=== PATIENT | female | born 2000 | race Caucasian/White ===

== ENCOUNTER 2019-07-16 14:47 | Emergency (ER) | payer SELFPAY ==
--- OUTSIDE RECORDS SUMMARY | 2019-07-16 14:49 | XMS REPORT ---
:2000 Author Organization eClinicalWorks Care Team Providers Name Role Phone Jeff Ro Provider Role Unavailable Allergies, Adverse Reactions, Alerts Substance Reaction Event Type N.K.D.A. Info Not Available Non Drug Allergy Problems Problem Type Condition Code Onset Dates Condition Status Assessment Pelvic pain R10.2 Active Problem Acute vaginitis N76.0 Active Problem Routine screening for STI (sexually Z11.3 Active transmitted infection) Problem Well woman exam with routine Z01.419 Active gynecological exam Assessment Acute vaginitis N76.0 Active Assessment Routine screening for STI (sexually Z11.3 Active transmitted infection) Assessment Well woman exam with routine Z01.419 Active gynecological exam Medications No Known Medications Results Name Result Date Reference Range Unit Abnormality Flag URINALYSIS AUTO W/O SCOPE (26221) ----NIT NEG 20181114 ----URO 0.2 20181114 ----PROTEIN NEG 20181114 ----pH 7.5 20181114 ----BLO 3+ 20181114 ----GLUCOSE NEG 20181114 ----EVANS NEG 20181114 ----BILIRUBIN NEG 20181114 ----KETONES NEG 20181114 ----SPECIFIC GRAVITY 1.015 20181114 Summary Purpose eClinicalWorks Submission
--- NOTE | 2019-07-16 15:38 | RAD REPORT ---
EXAM DESCRIPTION: RAD - Chest Single View - 07/16/2019 3:21 pm CLINICAL HISTORY: Cough, recent antibiotic treatment with no improvement COMPARISON: June 2016 TECHNIQUE: AP portable chest image was obtained 1515 hours . FINDINGS: Lungs are clear. Heart and vasculature are normal. No measurable pleural effusion and no p neumothorax. No acute bony abnormality seen. No acute aortic findings suspected. IMPRESSION: No acute cardiopulmonary process. No significant change from prior study.
[2019-07-16 15:49] LABS: Hematocrit 39.7 % (36.0-45.0); RBC Red Blood Cell Count 4.57 M/uL (3.86-4.86)
[2019-07-16 15:50] LABS: Basophils % 0.5 % (0-1.3); Lymphocytes % 27.4 % (15.3-44.8); MPV 8.9 fL (7.6-11.3)
[2019-07-16] MEDS ORDERED: DIAZEPAM 10 MG/2 ML INJ SYRINGE ONE (15:52)
[2019-07-16] MEDS ORDERED: KETOROLAC 30 MG/ML INJ ONE (15:53)
[2019-07-16] MEDS ORDERED: NA CHLORIDE 0.9% 0 ML ONE (15:53)
[2019-07-16 16:13] LABS: Protime INR 1.04
[2019-07-16 16:14] LABS: Urine Blood NEGATIVE (NEG); Urine Glucose NEGATIVE (NEG); Urine Protein NEGATIVE (NEG)
[2019-07-16 16:16] LABS: ALT/SGPT 17 U/L (12-78); AST/SGOT 7 U/L (15-37); Albumin 4.3 g/dL (3.4-5.0); Alkaline Phosphatase 63 U/L (45-117); BUN Blood Urea Nitrogen 8 mg/dL (7-18); Bicarbonate 25 mmol/L (21-32); Bilirubin Direct 0.2 mg/dL (0-0.2); Bilirubin Total 0.5 mg/dL (0.2-1.0); Glucose Level 94 mg/dL (74-106); Magnesium 2.2 mg/dL (1.8-2.4); NT PRO-BNP 31 pg/mL (<125); Potassium 3.4 mmol/L (3.5-5.1); Protein, Total 7.6 g/dL (6.4-8.2); Sodium Level 142 mmol/L (136-145); Troponin (Emerg Dept Use Only) < 0.02 ng/mL (0.0-0.045)
--- NOTE | 2019-07-16 16:32 | ER ---
Nurse's Notes [facility] Name: Bhaskar Salinas Age: 19 yrs Sex: Female : 2000 Arrival Date: 07/16/2019 Time: 14:52 Bed 13 Private MD: Diagnosis: Bronchitis, not specified as acute or chronic;Tachycardia, unspecified Presentation: 07/16 15:00 Presenting complaint: Patient states: 4 weeks I was dx URI and given PCN, completed it, la1 still have felt bad, Pt states HR runs in the 130s to 140s for the last few years. Transition of care: patient was not received from another setting of care. Onset of symptoms was July 16, 2019. Risk Assessment: Do you want to hurt yourself or someone else? Patient reports no desire to harm self or others. Initial Sepsis Screen: Does the patient meet any 2 criteria? No. Patient's initial sepsis screen is negative. Does the patient have a suspected source of infection? No. Patient's initial sepsis screen is negative. Care prior to arrival: None. 15:00 Method Of Arrival: Ambulatory la1 15:00 Acuity: ANGELO 3 la1 Triage Assessment: 15:07 Respiratory: Onset: The symptoms/episode began/occurred pt. reports that the rb1 palpitations have been going on for months., the patient has mild shortness of breath. 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 - Social history:: Smoking status: Patient uses tobacco products, denies chronic smoking, but will smoke occasionally. - Ebola Screening: : No symptoms or risks identified at this time. Screenin:07 Abuse screen: Denies threats or abuse. Nutritional screening: No deficits noted. rb1 Tuberculosis screening: No symptoms or risk factors identified. Fall Risk None identified. Assessment: 15:07 General: Appears in no apparent distress. comfortable, Behavior is calm, cooperative, rb1 Denies fever. General: Pt. reports feeling palpitations and SOB. Pain: Complains of pain in chest Pain currently is 2 out of 10 on a pain scale. Neuro: Level of Consciousness is awake, alert, obeys commands, Oriented to person, place, time, situation. Cardiovascular: Reports chest pain, palpitations, shortness of breath, Rhythm is sinus tachycardia. Respiratory: Reports shortness of breath cough that is productive, green sputum Airway is patent Respiratory effort is even, unlabored, Respiratory pattern is regular, symmetrical, Breath sounds are clear bilaterally. GI: Reports diarrhea, since x 3 weeks. : No signs and/or symptoms were reported regarding the genitourinary system. Derm: Skin is pink, warm \T\ dry. 16:00 Reassessment: Patient appears in no apparent distress at this time. Patient and/or rb1 family updated on plan of care and expected duration. Pain level reassessed. Patient is alert, oriented x 3, equal unlabored respirations, skin warm/dry/pink. Patient denies pain at this time. 17:00 Reassessment: Patient appears in no apparent distress at this time. No changes from rb1 previously documented assessment. Vital Signs: 15:02 BP 144 / 90; Pulse 140; Resp 18; Temp 99.4(TE); Pulse Ox 100% on R/A; Weight 58.97 kg; la1 Height 5 ft. 6 in. (167.64 cm); 16:00 BP 138 / 96; Pulse 120; Resp 17; Temp 98.8(TE); Pulse Ox 98% on R/A; Pain 0/10; rb1 17:00 BP 123 / 88; Pulse 99; Resp 16; Temp 98.7(O); Pulse Ox 100% on R/A; Pain 0/10; rb1 15:02 Body Mass Index 20.98 (58.97 kg, 167.64 cm) la1 ED Course: 14:52 Patient arrived in ED. mr 15:02 Humaira Correa FNP-C is PHCP. snw 15:02 Young Marcano MD is Attending Physician. snw 15:02 Triage completed. la1 15:02 Arm band placed on left wrist. la1 15:07 Patient has correct armband on for positive identification. Placed in gown. Bed in low rb1 position. Call light in reach. Side rails up X 1. engine monitor on. Pulse ox on. NIBP on. 15:08 Asha Zuñiga, RN is Primary Nurse. rb1 15:24 Chest Single View XRAY In Process Unspecified. EDMS 15:30 Initial lab(s) drawn, by me, sent to lab. Urine collected: clean catch specimen, clear, kj1 EKG done, by ED staff, reviewed by Humaira VALENTIN Flu and/or RSV swab sent to lab. Inserted saline lock: 22 gauge in right antecubital area, using aseptic technique. 15:45 First set of blood cultures drawn by me, Second set of blood cultures drawn by me. kj1 16:30 Payam Kerr MD is Referral Physician. snw 17:28 No provider procedures requiring assistance completed. IV discontinued, intact, rb1 bleeding controlled, No redness/swelling at site. Pressure dressing applied. Administered Medications: 16:00 Drug: Valium 2 mg Route: IVP; Site: right antecubital; rb1 16:15 Follow up: Response: No adverse reaction rb1 16:00 Drug: TORadol - Ketorolac 15 mg Route: IVP; Site: right antecubital; rb1 16:15 Follow up: Response: No adverse reaction rb1 16:00 Drug: NS 0.9% 1000 ml Route: IV; Rate: 1 bolus; Site: right antecubital; rb1 17:00 Follow up: IV Status: Completed infusion rb1 16:33 Drug: Metoprolol 25 mg Route: PO; rb1 17:00 Follow up: Response: No adverse reaction rb1 17:10 Not Given (provider discretion): NS 0.9% 1000 ml IV at 125 ml/hr continuous rb1 Outcome: 16:31 Discharge ordered by . snw 17:28 Patient left the ED. rb1 17:28 Discharged to home ambulatory, with family. rb1 17:28 Condition: stable 17:28 Discharge instructions given to patient, Instructed on discharge instructions, follow up and referral plans. Demonstrated understanding of instructions, follow-up care, medications, Prescriptions given X 1. Signatures: Dispatcher [employer] EDID Humaira Correa FNP-C FASHION MODEL-Csnw Yaima Houser Leland Becerril RN RN Asha Treadwell, RN RN rb1 Marry Wallace kj1 Corrections: (The following items were deleted from the chart) 16:17 15:07 Respiratory: Reports shortness of breath cough that is productive, green sputum rb1 Airway is patent Respiratory effort is even, unlabored, Respiratory pattern is regular, symmetrical, rb1 16:21 16:20 Initial lab(s) drawn, by me, sent to lab. Urine collected: clean catch specimen, kj1 clear, EKG done, by ED staff, reviewed by Humaira VALENTIN Flu and/or RSV swab sent to lab. kj1 16:20 Inserted saline lock: 22 gauge in right antecubital area, using aseptic kj1 technique. kj1
--- NOTE | 2019-07-16 16:32 | EDPHYS ---
Physician Documentation [facility] Name: Bhaskar Salinas Age: 19 yrs Sex: Female : 2000 Arrival Date: 07/16/2019 Time: 14:52 Bed 13 Private MD: ED Physician Young Marcano HPI: 07/16 15:37 This 19 yrs old Female presents to ER via Ambulatory with complaints of snw Cough, Chest Congestion, Shortness Of Breath. 15:37 The patient or guardian reports airway noise, cough, difficulty breathing. Onset: The snw symptoms/episode began/occurred 3 week(s) ago, and became persistent. Severity of symptoms: At their worst the symptoms were moderate, severe. Associated signs and symptoms: Pertinent positives: congestion. The patient has experienced similar episodes in the past. has seen cardiology for tachycardia multiple times. Pt states her normal resting heart rate is between 130-140. 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 - Social history:: Smoking status: Patient uses tobacco products, denies chronic smoking, but will smoke occasionally. - Ebola Screening: : No symptoms or risks identified at this time. ROS: 15:37 Constitutional: Negative for fever, chills, and weight loss, Eyes: Negative for injury, snw pain, redness, and discharge, ENT: Negative for injury, pain, and discharge, Neck: Negative for injury, pain, and swelling, Cardiovascular: Negative for chest pain, palpitations, and edema, Abdomen/GI: Negative for abdominal pain, nausea, vomiting, diarrhea, and constipation, Back: Negative for injury and pain, : Negative for injury, bleeding, discharge, and swelling, MS/Extremity: Negative for injury and deformity, Skin: Negative for injury, rash, and discoloration, Neuro: Negative for headache, weakness, numbness, tingling, and seizure. 15:37 Respiratory: Positive for cough, shortness of breath. Exam: 15:36 Head/Face: Normocephalic, atraumatic. Eyes: Pupils equal round and reactive to light, snw extra-ocular motions intact. Lids and lashes normal. Conjunctiva and sclera are non-icteric and not injected. Cornea within normal limits. Periorbital areas with no swelling, redness, or edema. ENT: Nares patent. No nasal discharge, no septal abnormalities noted. Tympanic membranes are normal and external auditory canals are clear. Oropharynx with no redness, swelling, or masses, exudates, or evidence of obstruction, uvula midline. Mucous membranes moist. Neck: Trachea midline, no thyromegaly or masses palpated, and no cervical lymphadenopathy. Supple, full range of motion without nuchal rigidity, or vertebral point tenderness. No Meningismus. Chest/axilla: Normal chest wall appearance and motion. Nontender with no deformity. No lesions are appreciated. 15:36 Abdomen/GI: Soft, non-tender, with normal bowel sounds. No distension or tympany. No guarding or rebound. No evidence of tenderness throughout. Back: No spinal tenderness. No costovertebral tenderness. Full range of motion. Skin: Warm, dry with normal turgor. Normal color with no rashes, no lesions, and no evidence of cellulitis. MS/ Extremity: Pulses equal, no cyanosis. Neurovascular intact. Full, normal range of motion. Neuro: Awake and alert, GCS 15, oriented to person, place, time, and situation. Cranial nerves II-XII grossly intact. Motor strength 5/5 in all extremities. Sensory grossly intact. Cerebellar exam normal. Normal gait. 15:36 Constitutional: The patient appears awake, anxious, restless. 15:36 Cardiovascular: Rate: tachycardic, Rhythm: regular, Pulses: no pulse deficits are appreciated, Heart sounds: normal. 15:36 Respiratory: the patient does not display signs of respiratory distress, Respirations: normal, Breath sounds: are clear throughout, harsh cough. 15:36 Psych: Behavior/mood is anxious, Affect is animated, Oriented to person, place, time. Vital Signs: 15:02 BP 144 / 90; Pulse 140; Resp 18; Temp 99.4(TE); Pulse Ox 100% on R/A; Weight 58.97 kg; la1 Height 5 ft. 6 in. (167.64 cm); 16:00 BP 138 / 96; Pulse 120; Resp 17; Temp 98.8(TE); Pulse Ox 98% on R/A; Pain 0/10; rb1 17:00 BP 123 / 88; Pulse 99; Resp 16; Temp 98.7(O); Pulse Ox 100% on R/A; Pain 0/10; rb1 15:02 Body Mass Index 20.98 (58.97 kg, 167.64 cm) la1 MDM: 15:14 Patient medically screened. snw 16:35 Data reviewed: vital signs, nurses notes. Data interpreted: Pulse oximetry: on room air snw is 98 %. Interpretation: normal. Counseling: I had a detailed discussion with the patient and/or guardian regarding: the historical points, exam findings, and any diagnostic results supporting the discharge/admit diagnosis, the presence of at least one elevated blood pressure reading (>120/80) during this emergency department visit, lab results, radiology results, the need for outpatient follow up, to return to the emergency department if symptoms worsen or persist or if there are any questions or concerns that arise at home. Special discussion: I have referred the patient to see his PCP for further evaluation of high blood pressure. Based on the history and exam findings, there is no indication for further emergent testing or inpatient evaluation. I discussed with the patient/guardian the need to see the advanced quality engineer for further evaluation of the symptoms. I discussed with the patient/guardian the need to see the primary care provider for further evaluation of the symptoms. 07/16 15:06 Order name: TSH; Complete Time: 16:29 snw 07/16 15:06 Order name: Basic Metabolic Panel; Complete Time: 16:29 snw 07/16 15:06 Order name: CBC with Diff; Complete Time: 16:29 snw 07/16 15:06 Order name: LFT's; Complete Time: 16:29 snw 07/16 15:06 Order name: Magnesium; Complete Time: 16:29 snw 07/16 15:06 Order name: NT PRO-BNP; Complete Time: 16:30 snw 07/16 15:06 Order name: PT-INR; Complete Time: 16:30 snw 07/16 15:06 Order name: Troponin (emerg Dept Use Only); Complete Time: 16:30 snw 07/16 15:06 Order name: Blood Culture Adult (2) snw 07/16 15:06 Order name: Flu; Complete Time: 16:30 snw 07/16 15:06 Order name: DD; Complete Time: 16:30 snw 07/16 15:52 Order name: Urine Dipstick--Ancillary (enter results); Complete Time: 16:30 eb 07/16 15:52 Order name: Urine --Ancillary (enter results); Complete Time: 16:30 eb 07/16 15:06 Order name: Chest Single View XRAY; Complete Time: 15:48 snw 07/16 15:06 Order name: EKG; Complete Time: 15:07 snw 07/16 15:06 Order name: EKG - Nurse/Tech; Complete Time: 16:43 snw 07/16 15:06 Order name: Cardiac monitoring; Complete Time: 16:43 snw 07/16 15:06 Order name: IV Saline Lock; Complete Time: 15:48 snw 07/16 15:06 Order name: Labs collected and sent; Complete Time: 15:48 snw 07/16 15:06 Order name: O2 Per Protocol; Complete Time: 16:43 snw 07/16 15:06 Order name: O2 Sat Monitoring; Complete Time: 16:43 snw Administered Medications: 16:00 Drug: Valium 2 mg Route: IVP; Site: right antecubital; rb1 16:15 Follow up: Response: No adverse reaction rb1 16:00 Drug: TORadol - Ketorolac 15 mg Route: IVP; Site: right antecubital; rb1 16:15 Follow up: Response: No adverse reaction rb1 16:00 Drug: NS 0.9% 1000 ml Route: IV; Rate: 1 bolus; Site: right antecubital; rb1 17:00 Follow up: IV Status: Completed infusion rb1 16:33 Drug: Metoprolol 25 mg Route: PO; rb1 17:00 Follow up: Response: No adverse reaction rb1 17:10 Not Given (provider discretion): NS 0.9% 1000 ml IV at 125 ml/hr continuous rb1 Disposition: 18:24 Co-signature as Attending Physician, Young Marcano MD. ma2 Disposition: 07/16/19 16:31 Discharged to Home. Impression: Bronchitis, not specified as acute or chronic, Tachycardia, unspecified. - Condition is Stable. - Discharge Instructions: Acute Bronchitis, Adult, Hypertension, Cool Mist Vaporizer, Rehydration, Adult. - Prescriptions for metoprolol succinate 25 mg Oral tablet extended release 24 hr - take 1 tablet by ORAL route once daily; 30 tablet. - School release form, Family Work Release, Medication Reconciliation Form, Thank You Letter, Antibiotic Education, Prescription Opioid Use, Work release form form. - Follow up: Private Physician; When: 1 - 2 days; Reason: Recheck today's complaints, Continuance of care, Re-evaluation by your physician. Follow up: Payam Kerr MD; When: 1 week; Reason: Recheck today's complaints, Continuance of care. Signatures: Dispatcher [employer] [facility] Humaira Correa, CRM MANAGER-C CRM MANAGER-Csnw Leland Bowie RN RN la1 Asha Zuñiga, RN RN rb1 Young Marcano MD MD ma2 Corrections: (The following items were deleted from the chart) 15:56 15:25 TEST, SERUM+SC.LAB.BRZ ordered. [facility] 17:28 16:31 07/16/2019 16:31 Discharged to Home. Impression: Bronchitis, not specified as rb1 acute or chronic; Tachycardia, unspecified. Condition is Stable. Forms are Medication Reconciliation Form, Thank You Letter, Antibiotic Education, Prescription Opioid Use. Follow up: Private Physician; When: 1 - 2 days; Reason: Recheck today's complaints, Continuance of care, Re-evaluation by your physician. Follow up: Payam Kerr; When: 1 week; Reason: Recheck today's complaints, Continuance of care. snw
[2019-07-16] MEDS ORDERED: NA CHLORIDE 0.9% 1,000 ML ONE (16:33)
[2019-07-16] MEDS ORDERED: METOPROLOL TAR 25 MG TAB ONE (16:33)
[2019-07-16 17:41] VITALS: BP 123/88; TEMP 98.7; O2SAT 100
--- NOTE | 2019-07-17 13:39 | EKG ---
Test Date: 2019-07-16 Test Time: 15:58:21 Sales Planning Coordinator: PASTORA MEASUREMENT RESULTS: Intervals: Rate: 113 NE: 156 QRSD: 78 QT: 322 QTc: 441 [place]: P: 83 NE: 156 QRS: 80 T: 64 INTERPRETIVE STATEMENTS: Sinus tachycardia Possible Left atrial enlargement RSR' or QR pattern in V1 suggests right ventricular conduction delay Borderline ECG Compared to ECG 07/24/2016 17:32:02 RSR' in V1 or V2 now present T-wave abnormality no longer present Electronically Signed On 07-17-19 13:38:37 CDT by Payam Kerr
== END 2019-07-16 17:28 | disposition home or self-care (01) ==
LOC: ER 14:47
DX: J40 Bronchitis, not specified as acute or chronic (principal); R00.0 Tachycardia, unspecified; Z72.0 Tobacco use
CPT/HCPCS: 36415; 71045; 80048; 80076; 81003; 81025; 83735; 83880; 84443; 84484; 85025; 85379; 85610; 87040; 87804; 93005; 96361; 96374; 96375; 99285; J3360; J7030

== ENCOUNTER 2019-08-15 19:18 | Emergency (ER) | payer SELFPAY ==
--- NOTE | 2019-08-15 20:11 | ER ---
Nurse's Notes [facility] Name: Bhaskar Salinas Age: 19 yrs Sex: Female : 2000 Arrival Date: 08/15/2019 Time: 19:22 Bed 14 Private MD: Diagnosis: peripheral neuropathy Presentation: 08/15 19:24 Presenting complaint: Patient states: Right great toe numbness x 1 week; States she lp1 mentioned it to her pharmacist today and was urged to come to ER due to her home medications. Transition of care: patient was not received from another setting of care. Onset of symptoms was August 15, 2019. Risk Assessment: Do you want to hurt yourself or someone else? Patient reports no desire to harm self or others. Initial Sepsis Screen: Does the patient meet any 2 criteria? No. Patient's initial sepsis screen is negative. Does the patient have a suspected source of infection? No. Patient's initial sepsis screen is negative. Care prior to arrival: None. 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 - Social history:: Smoking status: Patient uses tobacco products, denies chronic smoking, but will smoke occasionally. - Ebola Screening: : No symptoms or risks identified at this time. Screenin:33 Abuse screen: Denies threats or abuse. Denies injuries from another. Nutritional lp1 screening: No deficits noted. Tuberculosis screening: No symptoms or risk factors identified. Fall Risk None identified. Assessment: 20:03 General: Appears in no apparent distress. comfortable, Behavior is calm, cooperative. jb4 Pain: Denies pain. Neuro: Level of Consciousness is awake, alert, obeys commands, Oriented to person, place, time, situation, Moves all extremities. Gait is steady, Speech is normal, Facial symmetry appears normal, Pupils are PERRLA. Cardiovascular: Capillary refill < 3 seconds in bilateral toes Patient's skin is warm and dry. Pulses are 3+ in right dorsalis pedis artery and left dorsalis pedis artery. Respiratory: Airway is patent Respiratory effort is even, unlabored, Respiratory pattern is regular, symmetrical. GI: No deficits noted. No signs and/or symptoms were reported involving the gastrointestinal system. : No deficits noted. No signs and/or symptoms were reported regarding the genitourinary system. EENT: No deficits noted. No signs and/or symptoms were reported regarding the EENT system. Derm: Skin is intact, Skin is pink, warm \T\ dry. Musculoskeletal: Circulation, motion, and sensation intact. Range of motion: intact in all extremities. 20:22 Reassessment: Patient appears in no apparent distress at this time. Patient and/or jb4 family updated on plan of care and expected duration. Pain level reassessed. Patient is alert, oriented x 3, equal unlabored respirations, skin warm/dry/pink. PT verbalized understanding of d/c and follow up instructions. ambulated out of ED with steady gait with family. Vital Signs: 19:25 BP 135 / 81; Pulse 97; Resp 16; Temp 99.5(O); Pulse Ox 100% on R/A; Weight 58.97 kg lp1 (R); Height 5 ft. 6 in. (167.64 cm); Pain 0/10; 20:22 BP 118 / 82; Pulse 84; Resp 16; Pulse Ox 99% on R/A; jb4 19:25 Body Mass Index 20.98 (58.97 kg, 167.64 cm) lp1 ED Course: 19:22 Patient arrived in ED. cf2 19:25 Triage completed. lp1 19:25 Arm band placed on right wrist. lp1 19:43 Timothy Floyd, RN is Primary Nurse. jb4 20:02 Darryl Navarrete MD is Attending Physician. tw4 20:03 Patient has correct armband on for positive identification. Bed in low position. Call jb4 light in reach. Side rails up X 1. Pulse ox on. NIBP on. 20:22 No provider procedures requiring assistance completed. Patient did not have IV access jb4 during this emergency room visit. Administered Medications: No medications were administered Outcome: 20:10 Discharge ordered by . tw4 20:22 Discharged to home ambulatory, with family. jb4 20:22 Condition: stable 20:22 Discharge instructions given to patient, family, Instructed on discharge instructions, follow up and referral plans. Demonstrated understanding of instructions, follow-up care. 20:24 Patient left the ED. jb4 Signatures: Natalie Cline RN RN lp1 Timothy Floyd RN RN jb4 Darryl Navarrete MD MD tw4 Ryanne Vences 2
--- NOTE | 2019-08-15 20:25 | EDPHYS ---
Physician Documentation [facility] Name: Bhaskar Salinas Age: 19 yrs Sex: Female : 2000 Arrival Date: 08/15/2019 Time: 19:22 Bed 14 Private MD: ED Physician Darryl Navarrete HPI: 08/15 20:21 This 19 yrs old Female presents to ER via Ambulatory with complaints of Toe tw4 Numbness. 20:21 The patient presents with numbness right great toe. The complaints affect the dorsum of tw4 right foot. Onset: The symptoms/episode began/occurred last week. Modifying factors: The symptoms are alleviated by nothing. the symptoms are aggravated by nothing. Associated signs and symptoms: The patient has no apparent associated signs or symptoms. Severity of symptoms: At their worst the symptoms were very mild, in the emergency department the symptoms are unchanged. The patient has not experienced similar symptoms in the past. 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 - Social history:: Smoking status: Patient uses tobacco products, denies chronic smoking, but will smoke occasionally. - Ebola Screening: : No symptoms or risks identified at this time. ROS: 20:21 Constitutional: Negative for fever, chills, and weight loss, Eyes: Negative for injury, tw4 pain, redness, and discharge, Cardiovascular: Negative for chest pain, palpitations, and edema, Respiratory: Negative for shortness of breath, cough, wheezing, and pleuritic chest pain, Abdomen/GI: Negative for abdominal pain, nausea, vomiting, diarrhea, and constipation, MS/Extremity: Negative for injury and deformity, Skin: Negative for injury, rash, and discoloration. 20:21 Neuro: Positive for numbness, Negative for altered mental status, dizziness, gait disturbance, visual changes, weakness, acute changes. Exam: 20:21 Constitutional: This is a well developed, well nourished patient who is awake, alert, tw4 and in no acute distress. Head/Face: Normocephalic, atraumatic. Chest/axilla: Normal chest wall appearance and motion. Nontender with no deformity. No lesions are appreciated. Cardiovascular: Regular rate and rhythm with a normal S1 and S2. No gallops, murmurs, or rubs. Normal PMI, no JVD. No pulse deficits. Respiratory: Lungs have equal breath sounds bilaterally, clear to auscultation and percussion. No rales, rhonchi or wheezes noted. No increased work of breathing, no retractions or nasal flaring. Abdomen/GI: Soft, non-tender, with normal bowel sounds. No distension or tympany. No guarding or rebound. No evidence of tenderness throughout. Back: No spinal tenderness. No costovertebral tenderness. Full range of motion. Skin: Warm, dry with normal turgor. Normal color with no rashes, no lesions, and no evidence of cellulitis. MS/ Extremity: Pulses equal, no cyanosis. Neurovascular intact. Full, normal range of motion. Neuro: Awake and alert, GCS 15, oriented to person, place, time, and situation. Cranial nerves II-XII grossly intact. Motor strength 5/5 in all extremities. Sensory grossly intact. Cerebellar exam normal. Normal gait. Vital Signs: 19:25 BP 135 / 81; Pulse 97; Resp 16; Temp 99.5(O); Pulse Ox 100% on R/A; Weight 58.97 kg lp1 (R); Height 5 ft. 6 in. (167.64 cm); Pain 0/10; 20:22 BP 118 / 82; Pulse 84; Resp 16; Pulse Ox 99% on R/A; jb4 19:25 Body Mass Index 20.98 (58.97 kg, 167.64 cm) lp1 MDM: 20:02 Patient medically screened. tw4 20:21 Data reviewed: vital signs, nurses notes. Counseling: I had a detailed discussion with 4 the patient and/or guardian regarding: the historical points, exam findings, and any diagnostic results supporting the discharge/admit diagnosis. Administered Medications: No medications were administered Disposition: 20:30 Chart complete. [facility] Disposition: 08/15/19 20:10 Discharged to Home. Impression: peripheral neuropathy. - Condition is Stable. - Discharge Instructions: Focal Neuropathy. - Medication Reconciliation Form, Thank You Letter, Antibiotic Education, Prescription Opioid Use form. - Follow up: Private Physician; When: Upon discharge from the Emergency Department; Reason: If symptoms return, Recheck today's complaints, Continuance of care. - Problem is new. - Symptoms have improved. Signatures: Natalie Cline, RN RN lp1 Timothy Floyd RN RN jb4 Darryl Navarrete MD MD tw4 Corrections: (The following items were deleted from the chart) 20:24 20:10 08/15/2019 20:10 Discharged to Home. Impression: peripheral neuropathy. Condition jb4 is Stable. Forms are Medication Reconciliation Form, Thank You Letter, Antibiotic Education, Prescription Opioid Use. Follow up: Private Physician; When: Upon discharge from the Emergency Department; Reason: If symptoms return, Recheck today's complaints, Continuance of care. Problem is new. Symptoms have improved. tw4
[2019-08-15 21:57] VITALS: TEMP 99.5
[2019-08-15 21:58] VITALS: BP 118/82; O2SAT 99
== END 2019-08-15 20:24 | disposition home or self-care (01) ==
LOC: ER 19:18
DX: G62.9 Polyneuropathy, unspecified (principal); F41.9 Anxiety disorder, unspecified; F17.210 Nicotine dependence, cigarettes, uncomplicated
CPT/HCPCS: 99283

== ENCOUNTER 2020-03-14 20:44 | Emergency (ER) | payer SELFPAY ==
[2020-03-14 21:52] LABS: Absolute Lymphocytes (CBC) 2.2 K/uL (0.7-4.9); Basophils % 0.4 % (0-1.3); Hematocrit 38.2 % (36.0-45.0); MPV 8.7 fL (7.6-11.3); RBC Red Blood Cell Count 4.32 M/uL (3.86-4.86)
[2020-03-14 22:04] LABS: ALT/SGPT 16 U/L (12-78); AST/SGOT 11 U/L (15-37); Alkaline Phosphatase 68 U/L (45-117); BUN Blood Urea Nitrogen 12 mg/dL (7-18); Bicarbonate 27 mmol/L (21-32); Bilirubin Direct < 0.1 mg/dL (0-0.2); Bilirubin Total 0.4 mg/dL (0.2-1.0); Glucose Level 94 mg/dL (74-106); Lipase 73 U/L (73-393); Potassium 3.5 mmol/L (3.5-5.1); Protein, Total 7.9 g/dL (6.4-8.2); Sodium Level 141 mmol/L (136-145)
[2020-03-15 00:01] LABS: Urine Blood NEGATIVE (NEG); Urine Glucose NEGATIVE (NEG); Urine Protein NEGATIVE (NEG)
--- NOTE | 2020-03-15 00:09 | ER ---
Nurse's Notes [facility] Name: Bhaskar Salinas Age: 20 yrs Sex: Female : 2000 Arrival Date: 03/14/2020 Time: 20:46 Bed 26 Private MD: Diagnosis: Lower abdominal pain, unspecified;Gastrointestinal hemorrhage, unspecified Presentation: 03/14 20:52 Acuity: ANGELO 3 sg 20:52 Chief complaint: Patient states: BM around 1400 today, reports blood in BM x1. sg Coronavirus screen: Proceed with normal triage. Ebola Screen: Patient negative for fever greater than or equal to 101.5 degrees Fahrenheit, and additional compatible Ebola Virus Disease symptoms Patient denies exposure to infectious person. Patient denies travel to an Ebola-affected area in the 21 days before illness onset. No symptoms or risks identified at this time. Initial Sepsis Screen: Does the patient meet any 2 criteria? No. Patient's initial sepsis screen is negative. Does the patient have a suspected source of infection? No. Patient's initial sepsis screen is negative. Care prior to arrival: None. Transition of care: patient was not received from another setting of care. 20:52 Method Of Arrival: Ambulatory sg 21:43 Chief complaint: Chief complaint: Patient states: I HAD A BOWEL MOVEMENT EARLIER TODAY ls4 AND THERE WAS BLOOD IN IT. Coronavirus screen: Proceed with normal triage. Patient denies a cough. Patient denies shortness of breath or difficulty breathing. Patient denies measured and/or subjective temperature greater than 100.4F prior to today's visit. Patient denies travel on a cruise ship or to a country the [facility] currently lists as an affected area. Patient denies contact with known and/or suspected case of COVID-19. Ebola Screen: No symptoms or risks identified at this time. Initial Sepsis Screen: Does the patient meet any 2 criteria? No. Patient's initial sepsis screen is negative. Does the patient have a suspected source of infection? No. Patient's initial sepsis screen is negative. Risk Assessment: Do you want to hurt yourself or someone else? Patient reports no desire to harm self or others. Onset of symptoms was March 14, 2020 at 12:00. 21:43 Method Of Arrival: Ambulatory ls4 Triage Assessment: 21:43 General: Appears in no apparent distress. comfortable, Behavior is calm, cooperative. ls4 Pain: Pain currently is 0 out of 10 on a pain scale. Noted to be FLACC 0. Neuro: No deficits noted. Cardiovascular: No deficits noted. Respiratory: No deficits noted. GI: Last BM was March 14, 2020. Bowel sounds present X 4 quads. Abd is soft and non tender X 4 quads. Reports blood in stool. : No deficits noted. Derm: No deficits noted. Musculoskeletal: No deficits noted. 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 - Social history:: Smoking status: Patient denies any tobacco usage or history of. Screenin:48 Abuse screen: Denies threats or abuse. Denies injuries from another. Nutritional ls4 screening: No deficits noted. Tuberculosis screening: No symptoms or risk factors identified. Fall Risk None identified. Assessment: 21:00 General: Appears in no apparent distress. Neuro: No deficits noted. Cardiovascular: No ls4 deficits noted. Respiratory: No deficits noted. GI: Abdomen is non-distended, Bowel sounds present X 4 quads. Abd is soft and non tender. Musculoskeletal: No deficits noted. 23:40 Reassessment: Patient appears in no apparent distress at this time. Patient is alert, ls4 oriented x 3, equal unlabored respirations, skin warm/dry/pink. CHAPERONED SHEMAR LANDERS FOR RECTAL EXAM AND GUIAC STOOL. PT TOLERATED WELL. 03/15 00:19 Reassessment: Patient appears in no apparent distress at this time. Patient and/or ls4 family updated on plan of care and expected duration. Pain level reassessed. Patient is alert, oriented x 3, equal unlabored respirations, skin warm/dry/pink. Vital Signs: 03/14 21:43 BP 122 / 70; Pulse 84; Resp 14; Temp 98.3(O); Pulse Ox 99% on R/A; Weight 61.23 kg; ls4 Height 5 ft. 6 in. (167.64 cm); Pain 3/10; 22:30 BP 110 / 78; Pulse 76; Resp 16; Pulse Ox 99% on R/A; Pain 0/10; ls4 21:43 Body Mass Index 21.79 (61.23 kg, 167.64 cm) ls4 ED Course: 20:46 Patient arrived in ED. cl3 20:52 Triage completed. sg 20:53 Arm band placed on. sg 21:06 Shemar Gongora PA is PHCP. jr8 21:06 Lencho Mendoza MD is Attending Physician. jr8 21:20 Sridevi Rosales, RN is Primary Nurse. ls4 21:48 Patient has correct armband on for positive identification. Bed in low position. Call ls4 light in reach. Side rails up X 1. Pulse ox on. NIBP on. Verbal reassurance given. Diet: Patient is NPO. 21:48 No provider procedures requiring assistance completed. Urine collected:. Inserted ls4 saline lock: 18 gauge in right antecubital area, using aseptic technique. Blood collected. 23:19 CT Abd/Pelvis - IV Contrast Only In Process Unspecified. EDMS 03/15 00:29 IV discontinued, intact, bleeding controlled, No redness/swelling at site. Pressure ls4 dressing applied. Administered Medications: No medications were administered Outcome: 00:09 Discharge ordered by . jr8 00:28 Discharged to home ambulatory. ls4 00:28 Condition: good 00:28 Discharge instructions given to patient, Instructed on discharge instructions, follow up and referral plans. medication usage, Demonstrated understanding of instructions, follow-up care, medications. 00:29 Patient left the ED. ls4 Signatures: Dispatcher [employer] EDIN Neri Pa RN RN Shemar Gongora PA PA jr Sridevi Rosales, RN RN ls4 Melanie Mi cl3 Corrections: (The following items were deleted from the chart) 00:20 00:19 Reassessment: Patient appears in no apparent distress at this time. Patient is ls4 alert, oriented x 3, equal unlabored respirations, skin warm/dry/pink. CHAPERONED SHEMAR LANDERS FOR RECTAL EXAM AND GUIAC STOOL. PT TOLERATED WELL. ls4
--- NOTE | 2020-03-15 00:10 | EDPHYS ---
Physician Documentation [facility] Name: Bhaskar Salinas Age: 20 yrs Sex: Female : 2000 Arrival Date: 03/14/2020 Time: 20:46 Bed 26 Private MD: ED Physician Lencho Mendoza HPI: 03/14 23:23 This 20 yrs old Female presents to ER via Ambulatory with complaints of jr8 Bloody Stools. 23:23 The patient presents to the emergency department with rectal bleeding, a small amount, jr8 bright red blood with bowel movement, in toilet bowl. Onset: The symptoms/episode began/occurred acutely, today. Abdominal pain: described as crampy, located in the left lower quadrant. Modifying factors: The symptoms are alleviated by nothing, the symptoms are aggravated by nothing. Associated signs and symptoms: The patient has no apparent associated signs or symptoms. Severity of symptoms: At their worst the symptoms were moderate in the emergency department the symptoms have improved moderately. The patient has not experienced similar symptoms in the past. The patient has not recently seen a physician. 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 - Social history:: Smoking status: Patient denies any tobacco usage or history of. ROS: 23:23 Eyes: Negative for injury, pain, redness, and discharge, ENT: Negative for injury, jr8 pain, and discharge, Neck: Negative for injury, pain, and swelling, Cardiovascular: Negative for chest pain, palpitations, and edema, Respiratory: Negative for shortness of breath, cough, wheezing, and pleuritic chest pain, Back: Negative for injury and pain, MS/Extremity: Negative for injury and deformity, Skin: Negative for injury, rash, and discoloration, Neuro: Negative for headache, weakness, numbness, tingling, and seizure. 23:23 Abdomen/GI: Positive for constipation, abdominal cramps, rectal bleeding, Negative for nausea, vomiting, and diarrhea. Exam: 23:23 Eyes: Pupils equal round and reactive to light, extra-ocular motions intact. Lids and jr8 lashes normal. Conjunctiva and sclera are non-icteric and not injected. Cornea within normal limits. Periorbital areas with no swelling, redness, or edema. ENT: Nares patent. No nasal discharge, no septal abnormalities noted. Tympanic membranes are normal and external auditory canals are clear. Oropharynx with no redness, swelling, or masses, exudates, or evidence of obstruction, uvula midline. Mucous membranes moist. Neck: Trachea midline, no thyromegaly or masses palpated, and no cervical lymphadenopathy. Supple, full range of motion without nuchal rigidity, or vertebral point tenderness. No Meningismus. Cardiovascular: Regular rate and rhythm with a normal S1 and S2. No gallops, murmurs, or rubs. Normal PMI, no JVD. No pulse deficits. Respiratory: Lungs have equal breath sounds bilaterally, clear to auscultation and percussion. No rales, rhonchi or wheezes noted. No increased work of breathing, no retractions or nasal flaring. Back: No spinal tenderness. No costovertebral tenderness. Full range of motion. Skin: Warm, dry with normal turgor. Normal color with no rashes, no lesions, and no evidence of cellulitis. MS/ Extremity: Pulses equal, no cyanosis. Neurovascular intact. Full, normal range of motion. Neuro: Awake and alert, GCS 15, oriented to person, place, time, and situation. Cranial nerves II-XII grossly intact. Motor strength 5/5 in all extremities. Sensory grossly intact. Cerebellar exam normal. Normal gait. 23:23 Abdomen/GI: Inspection: abdomen appears normal, Bowel sounds: active, all quadrants, Palpation: soft, in all quadrants, mild abdominal tenderness, in the left lower quadrant, mass, is not appreciated, rebound tenderness, is not appreciated, voluntary guarding, is not appreciated, involuntary guarding, is not appreciated, no appreciated organomegaly, Rectal exam: rectal tone normal, Stool: brown, guaiac negative, hemorrhoid(s), are not appreciated, mass, is not appreciated, swelling, is not appreciated, tenderness, is not appreciated, fecal impaction, is not appreciated, the exam is chaperoned by the nurse, Indicators: McBurney's point is not tender, Doran's sign is negative, Rovsing's sign is negative, Liver: tenderness, is not appreciated. Vital Signs: 21:43 BP 122 / 70; Pulse 84; Resp 14; Temp 98.3(O); Pulse Ox 99% on R/A; Weight 61.23 kg; ls4 Height 5 ft. 6 in. (167.64 cm); Pain 3/10; 22:30 BP 110 / 78; Pulse 76; Resp 16; Pulse Ox 99% on R/A; Pain 0/10; ls4 21:43 Body Mass Index 21.79 (61.23 kg, 167.64 cm) ls4 MDM: 21:18 Patient medically screened. 03/15 00:08 Data reviewed: vital signs, nurses notes, lab test result(s), radiologic studies, CT jr8 scan. Data interpreted: Pulse oximetry: on room air is 99 %. Interpretation: normal. 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 Response to treatment: the patient's symptoms have mildly improved after treatment. Special discussion: Based on the patient's Hx, exam, and Dx evaluation, there is no indication for emergent surgery or inpatient Tx. It is understood by the patient/guardian that if the Sx's persist or worsen they need to return immediately for re-evaluation. 00:09 ED course: Discussed with patient that there is no acute findings present on exam, jr8 labs, or imaging. Could be internal hemorrhoid. No external appreciated. Rest of rectal exam was normal and without blood. Recommended f/u with GI. If worse or it happens again to come back. Patient good with this plan . 03/14 21:07 Order name: Basic Metabolic Panel; Complete Time: :03/14 21:07 Order name: CBC with Diff; Complete Time: :03/14 21:07 Order name: Hepatic Function; Complete Time: :03/14 21:07 Order name: Lipase; Complete Time: :03/14 22:02 Order name: Urine Dipstick--Ancillary (enter results); Complete Time: 00:08 mw2 03/14 22:02 Order name: Urine --Ancillary (enter results); Complete Time: 00: [facility] 03/14 21:07 Order name: IV Saline Lock; Complete Time: :34 [facility] 03/14 21:07 Order name: Labs collected and sent; Complete Time: :34 [facility] 03/14 21:07 Order name: Urine Test (obtain specimen); Complete Time: : [facility] 03/14 21:07 Order name: Urine Dipstick-Ancillary (obtain specimen); Complete Time: : [facility] 03/14 22:23 Order name: CT Abd/Pelvis - IV Contrast Only jr8 Administered Medications: No medications were administered Disposition: 12:29 Co-signature as Attending Physician, Lencho Mendoza MD I agree with the assessment and jose roberto plan of care. Disposition: 03/15/20 00:09 Discharged to Home. Impression: Lower abdominal pain, unspecified, Gastrointestinal hemorrhage, unspecified. - Condition is Stable. - Discharge Instructions: Abdominal Pain, Adult, Gastrointestinal Bleeding. - Medication Reconciliation Form, Thank You Letter, Antibiotic Education, Prescription Opioid Use form. - Follow up: Private Physician; When: 1 week; Reason: Recheck today's complaints, Continuance of care, Re-evaluation by your physician. - Problem is new. - Symptoms have improved. Signatures: Dispatcher [employer] EDNeri Pierce, RN Lencho Bradshaw MD MD cha Roszak, Josh, PA PA jr8 Sridevi Rosales RN RN ls4 Corrections: (The following items were deleted from the chart) 00:29 00:09 03/15/2020 00:09 Discharged to Home. Impression: Lower abdominal pain, ls4 unspecified; Gastrointestinal hemorrhage, unspecified. Condition is Stable. Forms are Medication Reconciliation Form, Thank You Letter, Antibiotic Education, Prescription Opioid Use. Follow up: Private Physician; When: 1 week; Reason: Recheck today's complaints, Continuance of care, Re-evaluation by your physician. Problem is new. Symptoms have improved. jr8
[2020-03-15 00:38] VITALS: TEMP 98.3; O2SAT 99
[2020-03-15 00:43] VITALS: BP 110/78
--- NOTE | 2020-03-16 11:09 | RAD REPORT ---
EXAM DESCRIPTION: CT - Abdomen Pelvis W Contrast - 03/15/2020 5:30 am CLINICAL HISTORY: Bloody stool. COMPARISON: None. TECHNIQUE: CT scan of the abdomen and pelvis was performed with IV contrast. This exam was performed according to our departmental dose-optimization program, which includes autom ated exposure control, adjustment of the mA and/or kV according to patient size and/or use of iterati ve reconstruction technique. FINDINGS: The lung bases are clear. No pleural or pericardial effusions are visualized. There is no hiatal sheila ia. The liver, spleen, pancreas, gallbladder, adrenal glands, and kidneys are unremarkable. There is a ti ny simple cyst in the right kidney. No hydronephrosis or urinary stones are seen. There is a 2 cm cys t in the right adnexa. The urinary bladder is unremarkable. The stomach and duodenum are unremarkable. No small bowel obstruction. The appendix is normal. No bia dence of acute diverticulitis. There are scattered lymph nodes throughout the mesentery. No intraperi toneal free fluid, free air, or abscess is seen. The aorta is normal in caliber. No acute bony findings are seen. There is no abnormal body wall herni a identified. IMPRESSION: 1. No acute abdominal or pelvic findings. 2. 2.0 cm benign appearing ovarian cyst. No follow-up imaging is recommended. Reference: J Am Blanca Radiol 2013;[id number] Electronically signed by: Amos Bell MD 03/14/2020 11:36 PM CDT Due to temporary technical issues with the PACS/Fluency reporting system, reports are being signed by the in house radiologist as a courtesy to ensure prompt reporting. The interpreting radiologist is f ully responsible for the content of the report.
== END 2020-03-15 00:29 | disposition home or self-care (01) ==
LOC: ER 20:44
DX: R10.30 Lower abdominal pain, unspecified (principal)
CPT/HCPCS: 36415; 74177; 80048; 80076; 81003; 81025; 83690; 85025; 99284; Q9967

== ENCOUNTER 2021-04-28 13:58 | Emergency (ER) | payer SELFPAY ==
--- OUTSIDE RECORDS SUMMARY | 2021-04-28 14:05 | XMS REPORT | Continuity of Care Document ---
:2000 Author Organization [facility] t Address [address] [place] [address] Care Team Providers Name Role Phone Singer COPE Attending Clinician Yael Johansen Attending Clinician Problems Condition Condition Condition Status Onset Resolution Last Treating Co mments Source Name Details Category Date Date Treatment Clinician Date Pelvic Pelvic Diagnosis Active [facility] Acute Acute Diagnosis Active [facility] Routine Routine Diagnosis [facility] screening [facility] - for STI for STI [facility] (sexually (sexually l transmitte transmitte Ou tpati d d ent infection) infection) Cl inics Well woman Well woman Diagnosis Active [facility] exam with exam with [facility] - routine routine [facility] gynecologi gynecologi l abhilash exam abhilash exam Outpat i ent Clinics Allergies, Adverse Reactions, Alerts This patient has no known allergies or adverse reactions. Medications This patient has no known medications. Procedures This patient has no known procedures. Encounters Start End Encounter Admission Attending Care Care Encounter Source Date/Time Date/Time Type Type Clinicians Facility Department ID 2020-04-22 2020-04-22 Emergency Singer [facility] [id number] 03:52:47 04:23:00 Lizandro Cat [id number] [place] [id number] [place] [id number] 2019-12-20 2019-12-20 Emergency Jet Romero [facility] [id number] 12:18:09 14:30:00 Yael Cat [id number] [place] [id number] [place] [id number] 2018-11-14 2018-11-14 Outpatient Brazruslan James [id number] [facility] 15:00:00 15:00:00 [facility] Results This patient has no known results.
--- NOTE | 2021-04-28 16:01 | RAD REPORT ---
EXAM DESCRIPTION: RAD - Chest Pa And Lat (2 Views) - 04/28/2021 3:52 pm CLINICAL HISTORY: DYSPNEA Chest pain. COMPARISON: Chest Single View dated 07/16/2019; Chest Pa And Lat (2 Views) dated 07/24/2016 FINDINGS: The lungs are clear. The heart is normal in size. No displaced fractures. IMPRESSION: No acute or concerning finding suspected.
[2021-04-28 17:20] LABS: Absolute Lymphocytes (CBC) 2.7 K/uL (0.7-4.9); Basophils % 0.7 % (0-1.3); Hematocrit 38.7 % (36.0-45.0); Lymphocytes % 40.3 % (15.3-44.8); MPV 8.9 fL (7.6-11.3); RBC Red Blood Cell Count 4.43 M/uL (3.86-4.86)
[2021-04-28 17:23] LABS: Protime INR 1.03
[2021-04-28 17:27] LABS: Urine Blood Negative (Negative); Urine Glucose Negative (Negative); Urine Protein Negative (Negative); Urine Specific Gravity 1.025 (1.005-1.030)
[2021-04-28 17:38] LABS: ALT/SGPT 17 U/L (12-78); AST/SGOT 10 U/L (15-37); Albumin 4.5 g/dL (3.4-5.0); Alkaline Phosphatase 52 U/L (45-117); BUN Blood Urea Nitrogen 10 mg/dL (7-18); Bicarbonate 26 mmol/L (21-32); Bilirubin Direct 0.1 mg/dL (0-0.2); Bilirubin Total 0.5 mg/dL (0.2-1.0); Glucose Level 82 mg/dL (74-106); Magnesium 2.4 mg/dL (1.8-2.4); NT PRO-BNP 19 pg/mL (<125); Potassium 3.3 mmol/L (3.5-5.1); Protein, Total 7.9 g/dL (6.4-8.2); Sodium Level 139 mmol/L (136-145); Troponin (Emerg Dept Use Only) < 0.02 ng/mL (0.0-0.045)
[2021-04-28 17:39] LABS: Urine Specific Gravity/Preg 1.025 (1.005-1.030)
--- NOTE | 2021-04-28 17:57 | EDPHYS ---
Physician Documentation [facility] Name: Bhaskar Salinas Age: 21 yrs Sex: Female : 2000 Arrival Date: 04/28/2021 Time: 14:01 Bed 27 Private MD: ED Physician Lencho Mendoza HPI: 04/28 17:25 This 21 yrs old Female presents to ER via Ambulatory with complaints of pm1 Breathing Difficulty, Chest Pressure. 17:25 The patient or guardian reports chest pain that is located primarily in the mid-sternal pm1 area. The pain does not radiate. Associated signs and symptoms: Pertinent positives: cough, shortness of breath, Pertinent negatives: abdominal pain, headache, nausea, palpitations, vomiting. The chest pain is described as congestion. Modifying factors: The symptoms are alleviated by nothing. the symptoms are aggravated by emotionally stressful situations, anxiety. Severity of pain: in the emergency department the pain is actually worse. The patient has not recently seen a physician. 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 - Social history:: Smoking status: Patient/guardian denies using tobacco. ROS: 17:25 Constitutional: Negative for fever, chills, and weight loss, Eyes: Negative for injury, pm1 pain, redness, and discharge, ENT: Negative for injury, pain, and discharge, Neck: Negative for injury, pain, and swelling. 17:25 Abdomen/GI: Negative for abdominal pain, nausea, vomiting, diarrhea, and constipation, Back: Negative for injury and pain, MS/Extremity: Negative for injury and deformity, Skin: Negative for injury, rash, and discoloration, Neuro: Negative for headache, weakness, numbness, tingling, and seizure. 17:25 Cardiovascular: Positive for chest pain, Negative for edema, palpitations. 17:25 Respiratory: Positive for cough, shortness of breath, Negative for wheezing. Exam: 17:25 Constitutional: This is a well developed, well nourished patient who is awake, alert, pm1 and in no acute distress. Head/Face: Normocephalic, atraumatic. 17:25 Eyes: Exam is negative for acute changes, Extraocular movements: no acute changes, Conjunctiva: normal, no acute changes, no injection, Sclera: no acute changes, icterus, is not appreciated. 17:25 ENT: Exam is negative for acute changes, Mouth: Lips: normal, Oral mucosa: normal, pink and intact, moist. Vital Signs: 14:31 BP 121 / 83; Pulse 72; Resp 17; Temp 98.7; Pulse Ox 99% on R/A; Weight 60.78 kg; Height jl7 5 ft. 7 in. (170.18 cm); Pain 6/10; 17:27 BP 129 / 73; Pulse 71; Pulse Ox 100% on R/A; ap3 14:31 Body Mass Index 20.99 (60.78 kg, 170.18 cm) jl7 MDM: 16:47 Patient medically screened. pm1 17:56 Data reviewed: vital signs. Data interpreted: Pulse oximetry: on room air is 100 %. pm1 Interpretation: normal. Counseling: I had a detailed discussion with the patient and/or guardian regarding: the historical points, exam findings, and any diagnostic results supporting the discharge/admit diagnosis, lab results, radiology results, the need for outpatient follow up, to return to the emergency department if symptoms worsen or persist or if there are any questions or concerns that arise at home. 17:58 ED course: possibly reflux related, offered patient gi cocktail but patient refused due pm1 to anxiety associated with numbing sensation. Patient stopped taking PPIs for her reflux disease due to possible allergic reaction from omeprazole. 04/28 16:47 Order name: Basic Metabolic Panel; Complete Time: 17:42 pm1 04/28 16:47 Order name: CBC with Diff; Complete Time: 17:42 pm1 04/28 16:47 Order name: LFT's; Complete Time: 17:42 pm1 04/28 16:47 Order name: Magnesium; Complete Time: 17:42 pm1 04/28 16:47 Order name: NT PRO-BNP; Complete Time: 17:42 pm1 04/28 16:47 Order name: PT-INR; Complete Time: 17:42 pm1 04/28 14:35 Order name: Chest Pa And Lat (2 Views) XRAY; Complete Time: 16:07 kb 04/28 16:47 Order name: Troponin (emerg Dept Use Only); Complete Time: 17:42 pm1 04/28 16:47 Order name: EKG; Complete Time: 16:48 pm1 04/28 16:47 Order name: Cardiac monitoring; Complete Time: 16:57 pm1 04/28 17:15 Order name: D-Dimer; Complete Time: 17:42 EDMS 04/28 17:26 Order name: Urine Dipstick-Ancillary; Complete Time: 17:42 EDMS 04/28 17:35 Order name: Urine --Ancillary (enter results); Complete Time: 17:42 bd 04/28 16:47 Order name: EKG - Nurse/Tech; Complete Time: 16:57 pm1 04/28 16:47 Order name: IV Saline Lock; Complete Time: 17:14 pm1 04/28 16:47 Order name: Labs collected and sent; Complete Time: 17:14 pm1 04/28 16:47 Order name: O2 Per Protocol; Complete Time: 16:57 pm1 04/28 16:47 Order name: O2 Sat Monitoring; Complete Time: 16:57 pm1 04/28 17:01 Order name: Urine Dipstick-Ancillary (obtain specimen); Complete Time: 17:27 pm1 04/28 17:01 Order name: Urine Test (obtain specimen); Complete Time: 17:27 pm1 Administered Medications: No medications were administered Disposition Summary: 04/28/21 17:57 Discharge Ordered Location: Home pm1 Problem: new pm1 Symptoms: have improved pm1 Condition: Stable pm1 Diagnosis - Chest pain, unspecified pm1 Followup: pm1 - With: Emergency Department - When: As needed - Reason: Worsening of condition Followup: pm1 - With: Private Physician - When: 2 - 3 days - Reason: Recheck today's complaints, Continuance of care, Re-evaluation by your physician Discharge Instructions: - Discharge Summary Sheet pm1 - Nonspecific Chest Pain, Adult pm1 Forms: - Medication Reconciliation Form pm1 - Thank You Letter pm1 - Antibiotic Education pm1 - Prescription Opioid Use pm1 Addendum: 04/29/2021 18:47 Co-signature as Attending Physician, Lencho Mendoza MD I agree with the assessment and c [place] plan of care. Signatures: Dispatcher [employer] EDAlyse Corral FNP-C CORPORATE COMMUNICATIONS ASSOCIATE-Ckb Lencho Mendoza MD MD cha Marinas, Patrick, REJI HOG RIBBER pm1 Kirk Morales RN RN jl7 Yanira Brown RN RN ap3 Corrections: (The following items were deleted from the chart) 04/28 16:57 16:57 Home Meds: metoprolol succinate 25 mg Oral Tb24 1 tab once daily; ap3 ap3 17:15 16:57 D-DIMER+COAG.LAB.BRZ ordered. EDMS EDMS
--- NOTE | 2021-04-28 17:57 | ER ---
Nurse's Notes [facility] Name: Bhaskar Salinas Age: 21 yrs Sex: Female : 2000 Arrival Date: 04/28/2021 Time: 14:01 Bed 27 Private MD: Diagnosis: Chest pain, unspecified Presentation: 04/28 14:31 Chief complaint: Patient states: Chest feels tight, I've been having a lot of panic jl7 attacks lately and I feel like I can't catch a good breath x 1 week. Coronavirus screen: Client denies travel out of the [place] in the last 14 days. At this time, the client does not indicate any symptoms associated with coronavirus-19. Ebola Screen: No symptoms or risks identified at this time. Initial Sepsis Screen: Does the patient meet any 2 criteria? No. Patient's initial sepsis screen is negative. Does the patient have a suspected source of infection? No. Patient's initial sepsis screen is negative. Risk Assessment: Do you want to hurt yourself or someone else? Patient reports no desire to harm self or others. Onset of symptoms was April 22, 2021. 14:31 Method Of Arrival: Ambulatory [facility] 14:31 Acuity: ANGELO 3 jl7 Triage Assessment: 16:44 General: Appears in no apparent distress. Respiratory: Reports pain with deep breathing.ap3 16:45 Respiratory: the patient has mild shortness of breath. 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 - Social history:: Smoking status: Patient/guardian denies using tobacco. Screenin:44 Abuse screen: Denies threats or abuse. Nutritional screening: No deficits noted. ap3 Tuberculosis screening: No symptoms or risk factors identified. Fall Risk None identified. Assessment: 16:42 General: Appears in no apparent distress. comfortable, Behavior is calm, cooperative, ap3 appropriate for age. Pain: Complains of pain in chest Pain radiates to back Pain began 7 days ago. Neuro: Level of Consciousness is awake, alert, obeys commands, Oriented to person, place, time, situation, Appropriate for age Gait is steady. Cardiovascular: Reports chest pain, shortness of breath, since 7 days ago. Respiratory: Airway is patent Respiratory effort is even, unlabored, Respiratory pattern is regular, symmetrical, Breath sounds are clear bilaterally. Respiratory: Denies cough. GI: No signs and/or symptoms were reported involving the gastrointestinal system. : No signs and/or symptoms were reported regarding the genitourinary system. EENT: Denies nasal congestion, nasal discharge. 16:57 Cardiovascular: Rhythm is regular. ap3 17:14 General: patient provided with urine specimen cup and education in how to collect urine ap3 sample. Patient verbalized understanding. . Vital Signs: 14:31 BP 121 / 83; Pulse 72; Resp 17; Temp 98.7; Pulse Ox 99% on R/A; Weight 60.78 kg; Height jl7 5 ft. 7 in. (170.18 cm); Pain 6/10; 17:27 BP 129 / 73; Pulse 71; Pulse Ox 100% on R/A; ap3 14:31 Body Mass Index 20.99 (60.78 kg, 170.18 cm) jl7 ED Course: 14:01 Patient arrived in ED. rg4 14:34 Triage completed. jl7 14:34 Arm band placed on right wrist. Patient placed in waiting room, Patient notified of jl7 wait time. 15:52 Chest Pa And Lat (2 Views) XRAY In Process Unspecified. EDMS 16:42 Yanira Brown, RN is Primary Nurse. ap3 16:45 Patient has correct armband on for positive identification. Bed in low position. Call ap3 light in reach. Side rails up X 1. Adult w/ patient. 16:46 Sae Guevara NP is PHCP. pm1 16:46 Lencho Mendoza MD is Attending Physician. pm1 16:56 EKG done, by ED staff, reviewed by Sae Guevara NP. ap3 17:14 Inserted saline lock: 20 gauge in right antecubital area, using aseptic technique. ap3 Blood collected. 17:50 Nurse Practitioner and/or Physician Drain Tile Machine Operator to see patient. ap3 18:09 No provider procedures requiring assistance completed. intact, bleeding controlled, No ap3 redness/swelling at site. Pressure dressing applied. Administered Medications: No medications were administered Outcome: 17:57 Discharge ordered by MD. pm1 18:09 Discharged to home ambulatory, with family. ap3 18:09 Condition: good 18:09 Discharge instructions given to patient, significant other, Instructed on discharge instructions, follow up and referral plans. Demonstrated understanding of instructions, follow-up care. 18:18 Patient left the ED. ap3 Signatures: Dispatcher [employer] EDMS Sae Guevara NP SOFTWARE ENGINEERING PROJECT MANAGER pm1 Janet Gil 4 Kirk Morales RN RN jl7 Yanira Brown RN RN ap3 Corrections: (The following items were deleted from the chart) 16:57 16:57 Home Meds: metoprolol succinate 25 mg Oral Tb24 1 tab once daily; ap3 ap3
[2021-04-28 18:25] VITALS: TEMP 98.7
[2021-04-28 18:26] VITALS: BP 129/73; O2SAT 100
--- NOTE | 2021-04-29 16:11 | EKG ---
Test Date: 2021-04-28 Test Time: 16:52:54 Summer Associate: ALP MEASUREMENT RESULTS: Intervals: Rate: 74 CA: 134 QRSD: 82 QT: 406 QTc: 450 [place]: P: 71 CA: 134 QRS: 68 T: 47 INTERPRETIVE STATEMENTS: Normal sinus rhythm Normal ECG Compared to ECG 07/16/2019 15:58:21 Sinus tachycardia no longer present Electronically Signed On 04-29-21 16:08:41 CDT by Shaji Perry
== END 2021-04-28 18:18 | disposition home or self-care (01) ==
LOC: ER 13:58
DX: R07.9 Chest pain, unspecified (principal); Z88.6 Allergy status to analgesic agent
CPT/HCPCS: 36415; 71046; 80048; 80076; 81003; 81025; 83735; 83880; 84484; 85025; 85379; 85610; 93005; 99284